=== PATIENT | female | born 1945 ===

== ENCOUNTER 2024-08-11 06:00 | Outpatient (CLI) | payer OTHER ==
[2024-08-11] MEDS ORDERED: SYNTHROID50 MCG PO (08:26)
[2024-08-11] MEDS ORDERED: LIPITOR40 M1 PO (08:26)
[2024-08-11] MEDS ORDERED: PROTONIX40 MG PO (08:27)
[2024-08-11] MEDS ORDERED: ATACAND32 MG PO (08:27)
[2024-08-11] MEDS ORDERED: HORIZANT300 MG PO (08:27)
[2024-08-11] MEDS ORDERED: ZANTAC25 MG/1 ML (08:28)
[2024-08-11] MEDS ORDERED: LEVO-T50 MCG PO (08:28)
[2024-08-11] MEDS ORDERED: PLAVIX75 MG PO (08:28)
[2024-08-11] MEDS ORDERED: VITAMIN B-121000 MC4 (08:29)
== END 2024-08-11 06:01 | disposition home or self-care (01) ==
LOC: RAD 06:00 → ADM 07:00 → EDSTATUS 08-18 07:00 → CIR.AMB 08-18 07:00
PROVIDERS: ATTEND Obstetrics & Gynecology Gynecology
DX: N81.11 Cystocele, midline (principal); N81.6 Rectocele; N81.5 Vaginal enterocele; N81.82 Incompetence or weakening of pubocervical tissue; N81.83 Incompetence or weakening of rectovaginal tissue; N39.0 Urinary tract infection, site not specified; D64.9 Anemia, unspecified; D68.9 Coagulation defect, unspecified; I10 Essential (primary) hypertension; R07.9 Chest pain, unspecified